=== PATIENT | male | born 1955 | race Caucasian/White ===

== ENCOUNTER 2017-06-03 20:03 | Emergency (ER) | payer OTHER ==
[~2017-06-03] VITALS: Ht 170.2 cm; Wt 167.8 kg
[~2017-06-03 20:03] MED LIST: ASPIRIN325 PO; BACTRIM DS TAB1 EACH PO; BACTROBAN NASAL1 GM NASAL; CARDIZEM30 MG; DILTIAZEM 24HR180 M1 PO; FLEXERIL PO; FUROSEMIDE 40 M40 M1 PO; GLIPIZIDE XL2.5 MG PO; GLUCOPHAGE500 MG; IBUPROFEN 400400 M2 PO; JANUVIA50 MG PO; KEFLEX500 MG PO; LISINOPRIL-HCT1 EAC1; LISINOPRIL-HCT1 EAC1 PO; LISINOPRIL10 MG PO; LOPRESSOR25 PO; MAG-OX 400 TAB400 M1 PO; MINOCYCLINE HC100 M2 PO; PERCOCET 5-3251 EACH PO; PROTONIX40 MG PO; TRAMADOL 50 MG50 MG PO
[2017-06-03 20:47] LABS: ABSOLUTE EOSINOPHILS 0.3 thou/uL (0.0-0.7); ABSOLUTE LYMPHOCYTES 1.2 thou/uL (0.8-5.3); ABSOLUTE MONOCYTES 0.8 thou/uL (0.0-1.2); ABSOLUTE NEUTROPHILS 2.7 thou/uL (1.6-8.1); BASOPHILS 0.7 %; EOSINOPHILS 5.2 %; HEMOGLOBIN 13.3 gm/dL (14.0-18.0); LYMPHOCYTES 23.5 %; MCH 35.5 pg (26.0-34.0); MCHC 35.1 g/dL (28.0-37.0); MCV 101.2 fL (80.0-100.0); MONOCYTES 15.4 %; MPV 7.1 fl. (7.2-11.1); NUCLEATED RBCS 0 /100WBC; PLATELET COUNT* 178 thou/uL (150-400); POLYS 55.2 %; RBC 3.75 mil/uL (4.50-6.00); RDW-CV 13.2 % (10.5-14.5); WBC 4.9 thou/uL (4.0-11.0)
[2017-06-03 20:48] LABS: BE 2.1 mmol/L (-2 to +3); HCO3 27.5 mmol/L (22.0-26.0); PCO2 46.1 mmHg (35.0-45.0); PO2 82.9 mmHg (75.0-100.0); pH 7.394 (7.340-7.450)
[2017-06-03 20:53] LABS: ANION GAP 8 mmol/L (7-16); BUN 11 mg/dL (7-18); CALCIUM 8.7 mg/dL (8.5-10.1); CHLORIDE 99 mmol/L (98-107); CO2 30 mmol/L (21-32); CREATININE 0.8 mg/dL (0.6-1.3); GLUCOSE 159 mg/dL (70-99); POTASSIUM 4.2 mmol/L (3.5-5.1); SODIUM 137 mmol/L (136-145)
[2017-06-03 20:57] LABS: APTT 26.1 Seconds (25.0-31.3); INR 1.2; PROTIME 11.7 Seconds (9.20-11.50)
[2017-06-03 21:00] LABS: INFLUENZA A ANTIGEN None Detected (None Detect); INFLUENZA B ANTIGEN None Detected (None Detect)
[2017-06-03 21:04] LABS: ALBUMIN 3.1 g/dL (3.4-5.0); ALKALINE PHOSPHATASE 68 U/L (46-116); NT-PRO BRAIN NAT PEPTIDE 53 pg/mL (<300); SGOT 41 U/L (15-37); SGPT 35 U/L (30-65); TOTAL BILIRUBIN 0.3 mg/dL (<0.1-1.0); TOTAL PROTEIN 7.6 g/dL (6.4-8.2); TROPONIN-I LEVEL <0.06 ng/mL (<0.06)
[2017-06-03] MEDS ORDERED: VENTOLIN HFA 1818 GM INH (21:27)
[2017-06-03] MEDS ORDERED: LEVAQUIN 500 M500 MG PO (21:27)
[2017-06-03] MEDS ORDERED: PREDNISONE 20 M20 M1 PO (21:27)
[2017-06-03 21:47] VITALS: BP 163/54
--- NOTE | 2017-06-04 11:47 | EKG ---
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 : 1955 Requested By: Stew Kaminski Order Number: [id number] MD: Shon Arnold Measurements Intervals [place] Rate: 87 P: 66 [place]: 172 QRS: -34 QRSD: 139 T: 14 QT: 408 QTc: 491 Interpretive Statements Sinus rhythm Right bundle branch block Left ventricular hypertrophy, bivoltage Compared to ECG 12/08/2015 07:54:06 Left ventricular hypertrophy now present Ventricular premature complex(es) no longer present Electronically Signed On 06-04-2017 11:47:38 [employer]IC by Shon Arnold [email or web address] <ELECTRONICALLY SIGNED> By: Shon Arnold MD, FACC 06/04/17 1147 09 09 Shon Arnold MD, [facility] /EPI
== END 2017-06-03 21:50 | disposition home or self-care (01) ==
LOC: M.ERS 20:03
PROVIDERS: Family Medicine
DX: J18.1 Lobar pneumonia, unspecified organism (principal); J44.1 Chronic obstructive pulmonary disease with (acute) exacerbation; I10 Essential (primary) hypertension; E11.9 Type 2 diabetes mellitus without complications; E66.9 Obesity, unspecified; I47.1 Supraventricular tachycardia; G43.909 Migraine, unspecified, not intractable, without status migrainosus; F10.99 Alcohol use, unspecified with unspecified alcohol-induced disorder; Z98.890 Other specified postprocedural states; Z88.5 Allergy status to narcotic agent; Z88.8 Allergy status to other drugs, medicaments and biological substances

== ENCOUNTER 2017-06-16 04:49 | Emergency (ER) | payer OTHER ==
[~2017-06-16] VITALS: Ht 170.2 cm; Wt 167.8 kg
[~2017-06-16 04:49] MED LIST changes: +LEVAQUIN 500 M500 MG PO; +PREDNISONE 20 M20 M1 PO; +VENTOLIN HFA 1818 GM INH
[2017-06-16] MEDS ORDERED: PERCOCET (04:57)
[2017-06-16 05:20] LABS: HEMATOCRIT 40.2 % (42.0-52.0); HEMOGLOBIN 13.7 gm/dL (14.0-18.0); MCH 34.7 pg (26.0-34.0); MCHC 34.1 g/dL (28.0-37.0); MCV 101.9 fL (80.0-100.0); MPV 7.1 fl. (7.2-11.1); RBC 3.94 mil/uL (4.50-6.00); RDW-CV 13.3 % (10.5-14.5); WBC 8.6 thou/uL (4.0-11.0)
[2017-06-16 05:29] LABS: ANION GAP 2 mmol/L (7-16); BUN 13 mg/dL (7-18); CALCIUM 8.4 mg/dL (8.5-10.1); CHLORIDE 98 mmol/L (98-107); CO2 29 mmol/L (21-32); CREATININE 0.9 mg/dL (0.6-1.3); GLUCOSE 206 mg/dL (70-99); SODIUM 129 mmol/L (136-145)
[2017-06-16 05:33] LABS: ALBUMIN 3.1 g/dL (3.4-5.0); ALKALINE PHOSPHATASE 68 U/L (46-116); SGOT 32 U/L (15-37); SGPT 41 U/L (30-65); TOTAL BILIRUBIN 0.4 mg/dL (<0.1-1.0); TOTAL PROTEIN 7.1 g/dL (6.4-8.2)
[2017-06-16 05:54] LABS: POTASSIUM 4.3 mmol/L (3.5-5.1)
[2017-06-16 05:55] LABS: TROPONIN-I LEVEL <0.06 ng/mL (<0.06)
[2017-06-16 06:11] VITALS: BP 143/80
--- NOTE | 2017-06-16 14:43 | EKG ---
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 : 1955 Requested By: Danny Srinivasan Order Number: [id number] MD: Timothy Jennings Measurements Intervals [place] Rate: 73 P: 57 [place]: 174 QRS: -25 QRSD: 147 T: 52 QT: 412 QTc: 454 Interpretive Statements Sinus rhythm Right bundle branch block Left ventricular hypertrophy Baseline wander in lead(s) I Compared to ECG 06/03/2017 20:10:21 No significant changes Electronically Signed On 06-16-2017 14:43:10 BEAM DOFFER by Timothy Jennings [email or web address] <ELECTRONICALLY SIGNED> By: Timothy Jennings MD, [facility] 06/16/17 [id number] [id number] Timothy Jennings MD, [facility] /EPI
== END 2017-06-16 06:12 | disposition home or self-care (01) ==
LOC: M.ERS 04:49
PROVIDERS: Emergency Medicine Emergency Medical Services
DX: S46.911A Strain of unspecified muscle, fascia and tendon at shoulder and upper arm level, right arm, initial encounter (principal); I10 Essential (primary) hypertension; E11.9 Type 2 diabetes mellitus without complications; Z88.5 Allergy status to narcotic agent; Z88.8 Allergy status to other drugs, medicaments and biological substances; X58.XXXA Exposure to other specified factors, initial encounter; Y93.89 Activity, other specified; Y92.89 Other specified places as the place of occurrence of the external cause; Y99.8 Other external cause status

== ENCOUNTER 2018-03-18 12:52 | Emergency (ER) | payer OTHER ==
[~2018-03-18] VITALS: Ht 170.2 cm; Wt 167.8 kg
[~2018-03-18 12:52] MED LIST changes: +PERCOCET
[2018-03-18] MEDS ORDERED: PREDNISONE 20 M20 MG PO (13:44)
[2018-03-18 13:58] VITALS: BP 155/86
== END 2018-03-18 13:58 | disposition home or self-care (01) ==
LOC: M.ERS 12:52
DX: R21 Rash and other nonspecific skin eruption (principal); I10 Essential (primary) hypertension; E11.9 Type 2 diabetes mellitus without complications; G43.909 Migraine, unspecified, not intractable, without status migrainosus; E66.9 Obesity, unspecified; Z68.43 Body mass index [BMI] 50.0-59.9, adult; Z88.5 Allergy status to narcotic agent; Z88.8 Allergy status to other drugs, medicaments and biological substances

== ENCOUNTER 2018-04-20 16:14 | Emergency (ER) | payer OTHER ==
[~2018-04-20] VITALS: Ht 170.2 cm; Wt 161.0 kg
[~2018-04-20 16:14] MED LIST changes: +PREDNISONE 20 M20 MG PO
[2018-04-20] MEDS ORDERED: PREDNISONE 10 M10 MG PO (17:17)
[2018-04-20] MEDS ORDERED: TRIAMCINOLONE A80 G2 TOP (17:19)
[2018-04-20 17:31] VITALS: BP 149/92
== END 2018-04-20 17:31 | disposition home or self-care (01) ==
LOC: M.ERS 16:14
DX: L25.9 Unspecified contact dermatitis, unspecified cause (principal); I10 Essential (primary) hypertension; E11.9 Type 2 diabetes mellitus without complications; G43.909 Migraine, unspecified, not intractable, without status migrainosus; J44.9 Chronic obstructive pulmonary disease, unspecified; E66.9 Obesity, unspecified; Z68.43 Body mass index [BMI] 50.0-59.9, adult; Z88.5 Allergy status to narcotic agent; Z88.8 Allergy status to other drugs, medicaments and biological substances

== ENCOUNTER 2018-11-16 16:28 | Inpatient (IN) | payer OTHER ==
[~2018-11-16] VITALS: Ht 170.2 cm; Wt 159.2 kg
[~2018-11-16 16:28] MED LIST changes: +PREDNISONE 10 M10 MG PO; +TRIAMCINOLONE A80 G2 TOP
[2018-11-16 16:31] VITALS: BP 177/75
[2018-11-16 17:10] LABS: HEMATOCRIT 39.2 % (42.0-52.0); HEMOGLOBIN 13.4 gm/dL (14.0-18.0); MCHC 34.2 g/dL (28.0-37.0); MCV 99.6 fL (80.0-100.0); MPV 8.5 fl. (7.2-11.1); NUCLEATED RBCS 0 /100WBC; PLATELET COUNT* 136 thou/uL (150-400); RBC 3.94 mil/uL (4.50-6.00); RDW-CV 15.5 % (10.5-14.5); WBC 15.8 thou/uL (4.0-11.0)
[2018-11-16 17:19] LABS: ANION GAP 9 mmol/L (7-16); BUN 12 mg/dL (7-18); CALCIUM 9.1 mg/dL (8.5-10.1); CHLORIDE 97 mmol/L (98-107); CO2 26 mmol/L (21-32); CREATININE 0.9 mg/dL (0.6-1.3); GLUCOSE 256 mg/dL (70-99); INR 1.1; POTASSIUM 4.9 mmol/L (3.5-5.1); PROTIME 11.6 Seconds (9.20-11.50); SODIUM 132 mmol/L (136-145)
[2018-11-16 17:29] LABS: ALBUMIN 3.3 g/dL (3.4-5.0); ALKALINE PHOSPHATASE 76 U/L (46-116); SGOT 32 U/L (15-37); SGPT 21 U/L (30-65); TOTAL BILIRUBIN 0.5 mg/dL (<0.1-1.0); TOTAL PROTEIN 8.9 g/dL (6.4-8.2); TROPONIN-I LEVEL <0.06 ng/mL (<0.06)
[2018-11-16 17:36] LABS: ABSOLUTE LYMPHOCYTES 0.3 thou/uL (0.8-5.3); ABSOLUTE MONOCYTES 1.3 thou/uL (0.0-1.2); ABSOLUTE NEUTROPHILS 14.2 thou/uL (1.6-8.1); PLATELET ESTIMATE DECREASED
[2018-11-16 17:37] LABS: ANISOCYTOSIS Occasional
[2018-11-16 18:02] LABS: URINE BILIRUBIN NEGATIVE (Negative); URINE BLOOD TRACE (Negative); URINE CLARITY CLEAR; URINE COLOR YELLOW; URINE GLUCOSE-RANDOM 2+ (Negative); URINE KETONES NEGATIVE (Negative); URINE LEUKOCYTES-REFLEX NEGATIVE (Negative); URINE NITRITE-REFLEX NEGATIVE (Negative); URINE PROTEIN NEGATIVE (Negative); URINE UROBILINOGEN 0.2 E.U./dl (0.2-1.0)
[2018-11-16 19:09] VITALS: BP 128/33
[2018-11-16 19:50] VITALS: BP 140/57
[2018-11-17] VITALS: BP 130/55
[2018-11-17 04:00] VITALS: BP 139/63
[2018-11-17 08:00] VITALS: BP 131/60
[2018-11-17 09:07] LABS: ABSOLUTE LYMPHOCYTES 0.5 thou/uL (0.8-5.3); ABSOLUTE MONOCYTES 0.7 thou/uL (0.0-1.2); ABSOLUTE NEUTROPHILS 10.3 thou/uL (1.6-8.1); BASOPHILS 0.4 %; EOSINOPHILS 0.1 %; HEMATOCRIT 35.4 % (42.0-52.0); HEMOGLOBIN 12.2 gm/dL (14.0-18.0); LYMPHOCYTES 4.2 %; MCH 33.9 pg (26.0-34.0); MCHC 34.4 g/dL (28.0-37.0); MCV 98.4 fL (80.0-100.0); MONOCYTES 6.3 %; MPV 7.5 fl. (7.2-11.1); NUCLEATED RBCS 0 /100WBC; PLATELET COUNT* 173 thou/uL (150-400); RDW-CV 15.3 % (10.5-14.5); WBC 11.6 thou/uL (4.0-11.0)
[2018-11-17 09:15] LABS: CALCIUM 8.3 mg/dL (8.5-10.1); CREATININE 0.8 mg/dL (0.6-1.3); INR 1.4; PROTIME 14.2 Seconds (9.20-11.50)
[2018-11-17 09:19] LABS: ALBUMIN 2.8 g/dL (3.4-5.0); MAGNESIUM 1.5 mg/dL (1.8-2.4); POTASSIUM 3.7 mmol/L (3.5-5.1); TOTAL BILIRUBIN 0.6 mg/dL (<0.1-1.0)
[2018-11-17 09:21] LABS: APTT 36.2 Seconds (25.0-31.3)
--- NOTE | 2018-11-17 11:08 | EKG ---
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 : 1955 Requested By: Danny Srinivasan Order Number: [id number] MD: Timothy Jennings Measurements Intervals [place] Rate: 120 P: 85 [place]: 162 QRS: -37 QRSD: 140 T: -6 QT: 318 QTc: 450 Interpretive Statements Sinus tachycardia Right bundle branch block Compared to ECG 06/16/2017 05:05:52 Sinus rhythm no longer present Left ventricular hypertrophy no longer present Electronically Signed On 11-17-2018 11:08:14 CDT by Timothy Jennings [email or web address] <ELECTRONICALLY SIGNED> By: Timothy Jennings MD, [facility] 11/17/18 1108 [id number] [id number] Timothy Jennings MD, [facility] /EPI
== END 2018-11-17 11:57 | disposition short-term general hospital (02) | DRG 872 ==
LOC: M.ERS 16:28 → M.TBA-ER 17:43 → M.2W 17:43
PROVIDERS: Emergency Medicine Emergency Medical Services; Internal Medicine; ADMIT Family Medicine
DX: A41.2 Sepsis due to unspecified staphylococcus (principal); L03.115 Cellulitis of right lower limb; L03.116 Cellulitis of left lower limb; E44.1 Mild protein-calorie malnutrition; A93.8 Other specified arthropod-borne viral fevers; Z68.43 Body mass index [BMI] 50.0-59.9, adult; I10 Essential (primary) hypertension; E11.9 Type 2 diabetes mellitus without complications; E66.9 Obesity, unspecified; S90.561A Insect bite (nonvenomous), right ankle, initial encounter; G43.909 Migraine, unspecified, not intractable, without status migrainosus; J44.9 Chronic obstructive pulmonary disease, unspecified; B95.8 Unspecified staphylococcus as the cause of diseases classified elsewhere; Z88.6 Allergy status to analgesic agent; Z88.8 Allergy status to other drugs, medicaments and biological substances; W57.XXXA Bitten or stung by nonvenomous insect and other nonvenomous arthropods, initial encounter; Y93.89 Activity, other specified; Y92.89 Other specified places as the place of occurrence of the external cause; Y99.8 Other external cause status